=== PATIENT | female | born 1985 | race Caucasian/White ===

== ENCOUNTER 2020-06-19 19:14 | Emergency (ER) | payer OTHER, SELFPAY ==
[2020-06-19] MEDS ORDERED: HYDROcodone/Acetaminophen 5/325 mg Tablet ONE (20:18)
--- NOTE | 2020-06-20 07:29 | RAD ---
RIGHT FOOT 3 VIEWS: DATE: 06/19/2020. FINDINGS: There is a mildly comminuted fracture of the distal phalanx of the great toe. There are mild displac ement fragments. The IP joint does not appear to be involved. The remainder of the foot appears int act. IMPRESSION: Displaced fracture of the distal phalanx of the great toe. POS: HOME
== END 2020-06-19 20:39 | disposition home or self-care (01) ==
LOC: BURERS 19:14
DX: S92.421A Displaced fracture of distal phalanx of right great toe, initial encounter for closed fracture (principal); W20.8XXA Other cause of strike by thrown, projected or falling object, initial encounter

== ENCOUNTER 2022-08-18 13:58 | Emergency (ER) | payer OTHER | END 2022-08-18 14:30 | disposition home or self-care (01) | LOC: BURERS 13:58 | DX: R05.9 Cough, unspecified (principal); R50.9 Fever, unspecified; Z20.822 Contact with and (suspected) exposure to COVID-19; F17.290 Nicotine dependence, other tobacco product, uncomplicated | CPT/HCPCS: 87804; 99283; U0003; U0005 ==